=== PATIENT | female | born 1995 | race Caucasian/White ===

== ENCOUNTER 2019-10-22 22:43 | Emergency (ER) | payer SELFPAY ==
[2019-10-23 00:12] LABS: Urine Blood TRACE (NEG); Urine Glucose NEGATIVE (NEG); Urine Protein NEGATIVE (NEG); Urine Specific Gravity 1.015 (1.005-1.030)
[2019-10-23 00:13] LABS: Urine Culture Reflex Order NOT NEEDED
[2019-10-23 00:15] LABS: Urine Bacteria 20-50 /HPF (<20); Urine RBC <5 /HPF (NONE SEEN)
--- NOTE | 2019-10-23 01:30 | ER ---
Nurse's Notes [facility] Name: Mihai Levy Age: 23 yrs Sex: Female : 1995 Arrival Date: 10/22/2019 Time: 22:43 Bed 14 Private MD: Diagnosis: Acute bronchitis;Urinary tract infection, site not specified Presentation: 10/22 22:48 Presenting complaint: Patient states: stabbing, on and off, chest pain for a week now. rv feet are swollen too.my breast are swollen too. I took test at home it is positive. stay in the rehab, and they checked for and it was negative. my tubes are tied. Transition of care: patient was received from another setting of care (rehabilitation facility). Onset of symptoms was October 21, 2019 at 08:00. Risk Assessment: Do you want to hurt yourself or someone else? Patient reports no desire to harm self or others. Initial Sepsis Screen: Does the patient meet any 2 criteria? No. Patient's initial sepsis screen is negative. Does the patient have a suspected source of infection? No. Patient's initial sepsis screen is negative. Care prior to arrival: None. 22:48 Method Of Arrival: Ambulatory rv 22:48 Acuity: DOMINIK 3 rv Triage Assessment: 22:53 General: Appears ill, Behavior is calm, cooperative. Pain: Complains of pain in chest. rv Neuro: Level of Consciousness is awake, alert, obeys commands, Oriented to person, place, time, situation. Cardiovascular: Patient's skin is warm and dry. 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 - Coronavirus screen:: The patient has NOT traveled to [place], [place], or [place] in the past 14 days. Proceed with normal triage process as indicated. The patient has NOT had contact with known/suspected case of Coronavirus? Proceed with normal triage procedures. - Social history:: Smoking status: Patient reports the use of cigarette tobacco products, smokes one-half pack cigarettes per day. - Ebola Screening: : No symptoms or risks identified at this time. Screenin:26 Abuse screen: Denies threats or abuse. Denies injuries from another. Nutritional mg2 screening: No deficits noted. Tuberculosis screening: No symptoms or risk factors identified. Fall Risk None identified. Assessment: 23:25 General: Appears in no apparent distress. comfortable, Behavior is calm, cooperative. mg2 Pain: Complains of pain in mid-sternal area Pain does not radiate. Pain currently is 4 out of 10 on a pain scale. Quality of pain is described as aching, Pain began gradually, Is intermittent. Neuro: Level of Consciousness is awake, alert, obeys commands, Oriented to person, place, time, situation. Cardiovascular: Capillary refill < 3 seconds Patient's skin is warm and dry. Cardiovascular: Reports chest pain. Respiratory: Airway is patent Respiratory effort is even, unlabored, Respiratory pattern is regular, symmetrical. GI: No signs and/or symptoms were reported involving the gastrointestinal system. : No signs and/or symptoms were reported regarding the genitourinary system. EENT: No signs and/or symptoms were reported regarding the EENT system. Derm: Skin is intact, is healthy with good turgor, Skin is pink, warm \T\ dry. normal. Musculoskeletal: Circulation, motion, and sensation intact. Capillary refill < 3 seconds. 10/23 00:45 Reassessment: Patient appears in no apparent distress at this time. No changes from previously documented assessment. Patient and/or family updated on plan of care and expected duration. Pain level reassessed. Patient is alert, oriented x 3, equal unlabored respirations, skin warm/dry/pink. 01:59 Reassessment: Patient appears in no apparent distress at this time. No changes from previously documented assessment. Patient and/or family updated on plan of care and expected duration. Pain level reassessed. Patient is alert, oriented x 3, equal unlabored respirations, skin warm/dry/pink. Vital Signs: 10/22 22:51 BP 131 / 83; Pulse 86; Resp 17; Temp 98.2; Pulse Ox 100% ; Weight 45.36 kg; Height 5 rv ft. 3 in. (160.02 cm); 10/23 00:04 Pulse 65; Resp 18; Pulse Ox 100% on R/A; mg2 00:30 BP 116 / 78; Pulse 56; Resp 18; Pulse Ox 100% on R/A; 01:30 BP 115 / 77; Pulse 62; Resp 18; Pulse Ox 100% ; 10/22 22:51 Body Mass Index 17.71 (45.36 kg, 160.02 cm) rv ED Course: 10/22 22:43 Patient arrived in ED. ds1 22:51 Triage completed. rv 22:53 Arm band placed on. rv 22:54 Denzel Oliveira, RN is Primary Nurse. mg2 22:56 Lizzie Vallejo FNP-C is PHCP. snw 22:56 Jae Bran MD is Attending Physician. snw 23:26 Patient has correct armband on for positive identification. Pulse ox on. NIBP on. Door mg2 closed. Warm blanket given. 23:26 No provider procedures requiring assistance completed. Patient did not have IV access mg2 during this emergency room visit. Patient maintains SpO2 saturation greater than 95% on room air. 23:55 Chest Pa And Lat (2 Views) XRAY In Process Unspecified. EDMS Administered Medications: 10/23 01:56 Drug: Augmentin 875 mg Route: PO; 02:02 Follow up: Response: No adverse reaction Outcome: 01:29 Discharge ordered by . snw 02:01 Discharged to home ambulatory. 02:01 Condition: stable 02:01 Discharge instructions given to patient, Instructed on discharge instructions, follow up and referral plans. medication usage, POC Demonstrated understanding of instructions, follow-up care, medications, POC Prescriptions given X 2. 02:02 Patient left the ED. Addendum: 10/27/2019 07:13 Addendum: Culture Results: Positive urine culture. No further action required. Bacteria e b sensitive to prescribed antibiotic. Signatures: Dispatcher [employer] EDMS Lizzie Vallejo FNP-C ASSOCIATE VETERINARIAN-Tamela Matos ds1 Edgar Arellano Kaylie Arshad Michele, CHALINO ALLRED mg2 Manolo Urena RN RN rv
--- NOTE | 2019-10-23 01:30 | EDPHYS ---
Physician Documentation [facility] Name: Mihai Levy Age: 23 yrs Sex: Female : 1995 Arrival Date: 10/22/2019 Time: 22:43 Bed 14 Private MD: ED Physician Jae Bran HPI: 10/22 23:05 This 23 yrs old Female presents to ER via Ambulatory with complaints of Chest snw Pain. 23:05 This 23 yrs old Female presents to ER via Ambulatory with complaints of Chest snw Pain. 23:05 Onset: The symptoms/episode began/occurred intermittent. Associated signs and symptoms: snw Pertinent positives: The patient does not have any pertinent positive signs or symptoms associated with pediatric illness. Modifying factors: The patient symptoms are alleviated by nothing, the patient symptoms are aggravated by nothing. It is unknown whether or not the patient has had similar symptoms in the past. It is unknown whether or not the patient has recently seen a physician. in [place] [facility] for Meth addiction, clean x 26 days. 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 - Coronavirus screen:: The patient has NOT traveled to [place], [place], or [place] in the past 14 days. Proceed with normal triage process as indicated. The patient has NOT had contact with known/suspected case of Coronavirus? Proceed with normal triage procedures. - Social history:: Smoking status: Patient reports the use of cigarette tobacco products, smokes one-half pack cigarettes per day. - Ebola Screening: : No symptoms or risks identified at this time. ROS: 23:02 Constitutional: Negative for fever, chills, and weight loss, Eyes: Negative for injury, snw pain, redness, and discharge, ENT: Negative for injury, pain, and discharge, Neck: Negative for injury, pain, and swelling, Respiratory: Negative for shortness of breath, cough, wheezing, and pleuritic chest pain, Abdomen/GI: Negative for abdominal pain, nausea, vomiting, diarrhea, and constipation, Back: Negative for injury and pain, : Negative for injury, bleeding, discharge, and swelling, MS/Extremity: Negative for injury and deformity, Skin: Negative for injury, rash, and discoloration, Neuro: Negative for headache, weakness, numbness, tingling, and seizure, Psych: Negative for depression, anxiety, suicide ideation, homicidal ideation, and hallucinations. 23:02 Cardiovascular: Positive for chest pain, of the mid-sternal area. Exam: 23:02 Constitutional: This is a well developed, well nourished patient who is awake, alert, snw and in no acute distress. Head/Face: Normocephalic, atraumatic. Eyes: Pupils equal round and reactive to light, extra-ocular motions intact. Lids and lashes normal. Conjunctiva and sclera are non-icteric and not injected. Cornea within normal limits. Periorbital areas with no swelling, redness, or edema. ENT: Nares patent. No nasal discharge, no septal abnormalities noted. Tympanic membranes are normal and external auditory canals are clear. Oropharynx with no redness, swelling, or masses, exudates, or evidence of obstruction, uvula midline. Mucous membranes moist. Neck: Trachea midline, no thyromegaly or masses palpated, and no cervical lymphadenopathy. Supple, full range of motion without nuchal rigidity, or vertebral point tenderness. No Meningismus. Chest/axilla: Normal chest wall appearance and motion. Nontender with no deformity. No lesions are appreciated. Cardiovascular: Regular rate and rhythm with a normal S1 and S2. No gallops, murmurs, or rubs. Normal PMI, no JVD. No pulse deficits. Respiratory: Lungs have equal breath sounds bilaterally, clear to auscultation and percussion. No rales, rhonchi or wheezes noted. No increased work of breathing, no retractions or nasal flaring. Abdomen/GI: Soft, non-tender, with normal bowel sounds. No distension or tympany. No guarding or rebound. No evidence of tenderness throughout. Back: No spinal tenderness. No costovertebral tenderness. Full range of motion. Skin: Warm, dry with normal turgor. Normal color with no rashes, no lesions, and no evidence of cellulitis. MS/ Extremity: Pulses equal, no cyanosis. Neurovascular intact. Full, normal range of motion. Neuro: Awake and alert, GCS 15, oriented to person, place, time, and situation. Cranial nerves II-XII grossly intact. Motor strength 5/5 in all extremities. Sensory grossly intact. Cerebellar exam normal. Normal gait. Psych: Awake, alert, with orientation to person, place and time. Behavior, mood, and affect are within normal limits. Vital Signs: 22:51 BP 131 / 83; Pulse 86; Resp 17; Temp 98.2; Pulse Ox 100% ; Weight 45.36 kg; Height 5 rv ft. 3 in. (160.02 cm); 10/23 00:04 Pulse 65; Resp 18; Pulse Ox 100% on R/A; mg2 00:30 BP 116 / 78; Pulse 56; Resp 18; Pulse Ox 100% on R/A; wh 01:30 BP 115 / 77; Pulse 62; Resp 18; Pulse Ox 100% ; wh 10/22 22:51 Body Mass Index 17.71 (45.36 kg, 160.02 cm) rv MDM: 10/22 22:56 Patient medically screened. snw 10/23 01:31 Data reviewed: vital signs, nurses notes. Data interpreted: Pulse oximetry: on room air snw is 100 %. Interpretation: normal. Counseling: I had a detailed discussion with the patient and/or guardian regarding: the historical points, exam findings, and any diagnostic results supporting the discharge/admit diagnosis, the presence of at least one elevated blood pressure reading (>120/80) during this emergency department visit, lab results, radiology results, the need for outpatient follow up, to return to the emergency department if symptoms worsen or persist or if there are any questions or concerns that arise at home. Response to treatment: There is no appreciated change of the patient's symptoms at this time, VSS. Special discussion: Based on the patient's history, exam, and Dx evaluation, there is no indication for emergent intervention or inpatient Tx. It is understood by the patient/guardian that if the Sx's persist or worsen they need to return immediately for re-evaluation. I have referred the patient to see his PCP for further evaluation of high blood pressure. Based on the history and exam findings, there is no indication for further emergent testing or inpatient evaluation. I discussed with the patient/guardian the need to see the primary care provider for further evaluation of the symptoms. 10/22 22:57 Order name: Urine Culture snw 10/22 22:57 Order name: Urine Microscopic Only; Complete Time: 00:19 10/22 23:15 Order name: Urine Dipstick--Ancillary (enter results); Complete Time: 00:13 em10/22 23:15 Order name: Urine --Ancillary (enter results); Complete Time: 00:13 10/22 23:20 Order name: Chest Pa And Lat (2 Views) XRAY 10/22 22:57 Order name: Urine Test (obtain specimen); Complete Time: 23:14 10/22 22:57 Order name: Urine Dipstick-Ancillary (obtain specimen); Complete Time: 23:14 10/22 23:07 Order name: EKG; Complete Time: 23:07 10/22 23:07 Order name: EKG - Nurse/Tech; Complete Time: 23:15 snw Administered Medications: 01:56 Drug: Augmentin 875 mg Route: PO; 02:02 Follow up: Response: No adverse reaction Disposition: 02:46 Co-signature as Attending Physician, Jae Bran MD. rn Disposition: 10/23/19 01:29 Discharged to Home. Impression: Acute bronchitis, Urinary tract infection, site not specified. - Condition is Stable. - Discharge Instructions: Acute Bronchitis, Adult, Nonspecific Chest Pain, Rehydration, Adult. - Prescriptions for Augmentin 875- 125 mg Oral Tablet - take 1 tablet by ORAL route every 12 hours for 10 days; 20 tablet. Zyrtec 10 mg Oral Tablet - take 1 tablet by ORAL route once daily As needed; 20 tablet. - Medication Reconciliation Form, Thank You Letter, Antibiotic Education, Prescription Opioid Use form. - Follow up: Emergency Department; When: As needed; Reason: Worsening of condition. Follow up: Private Physician; When: 2 - 3 days; Reason: Recheck today's complaints, Continuance of care, Re-evaluation by your physician. Signatures: Dispatcher [employer] EDAR Lizzie Vallejo, PREFITTER DOORS-C PREFITTER DOORS-Csnw Jae Bran MD MD rn [place], Winsy Manolo Urena RN RN rv Corrections: (The following items were deleted from the chart) 02:02 01:29 10/23/2019 01:29 Discharged to Home. Impression: Acute bronchitis; Urinary tract wh infection, site not specified. Condition is Stable. Forms are Medication Reconciliation Form, Thank You Letter, Antibiotic Education, Prescription Opioid Use. Follow up: Emergency Department; When: As needed; Reason: Worsening of condition. Follow up: Private Physician; When: 2 - 3 days; Reason: Recheck today's complaints, Continuance of care, Re-evaluation by your physician. snw
[2019-10-23] MEDS ORDERED: AMOX/K CLAV 875 MG TAB ONE (01:48)
[2019-10-23 02:10] VITALS: TEMP 98.2; O2SAT 100
[2019-10-23 02:14] VITALS: BP 115/77
--- NOTE | 2019-10-23 06:55 | EKG ---
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
--- NOTE | 2019-10-23 08:08 | RAD REPORT ---
EXAM DESCRIPTION: Jodi Meléndez (2 Views)10/22/2019 11:56 pm CLINICAL HISTORY: Chest pain COMPARISON: None FINDINGS: The lungs appear clear of acute infiltrate. The heart is normal size IMPRESSION: No acute abnormalities displayed
== END 2019-10-23 02:02 | disposition home or self-care (01) ==
LOC: ER 22:43
DX: J20.9 Acute bronchitis, unspecified (principal); N39.0 Urinary tract infection, site not specified
CPT/HCPCS: 71046; 81003; 81015; 81025; 87077; 87086; 87088; 87186; 93005; 99284